=== PATIENT | male | born 1990 | race Caucasian/White ===

== ENCOUNTER 2017-07-21 16:33 | Emergency (ER) | payer OTHER ==
[2017-07-21 16:41] VITALS: BP 128/92; PULSE 100; TEMP 98.3; BMI 24.0
--- NOTE | 2017-07-21 16:41 | PDOC ---
Rapid Medical Evaluation Time Seen by Provider: 07/21/17 16:36 Medical Evaluation: 07/21/17 16:36 The patient presents with a chief complaint of: Itching all over body for 6-7 months. Taking anti-itch medication, still with itching. No fevers or recent illness. 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 I have performed a brief in-person evaluation of this patient; Pertinent physical exam findings: ambulatory, in no respiratory distress. No obvious rash I have ordered the following: nothing The patient will proceed to the ED for further evaluation.
--- NOTE | 2017-07-21 18:13 | PDOC ---
History of Present Illness - General Chief Complaint: Rash Stated Complaint: RASH Time Seen by Provider: 07/21/17 16:36 History Source: Patient Exam Limitations: No Limitations - History of Present Illness Initial Comments: 07/21/17 18:08 Patient came with friend for evaluation of severe itching. Patient is dates he has seen multiple doctors and this syndrome started approximately 6 months ago. States was seen by his private physician and evaluated "thoroughly, she did every test" which all returned negative for any pathology. He insisted on repeating test as he felt there was still an issue with his health which is private physician applied and again returned with negative results. At that time as patient states itching was escalating to multiple areas on his body "on the inside of my legs and my arms", was referred to business development sales executive who started patient on hydroxyzine and some type of ALLERGY injection. States after 1 month of receiving these injections had no relief of this itching and in fact was escalating. In by and another business development sales executive who suggested some steroids and several creams which he prescribed. Patient states after another length of time had no resolution to this significant itching and was referred to yet one more business development sales executive who treated him with permethrin for scabies. Patient states that was not certain that patient had scabies however had exhausted all ideas for treatment for this itching. Patient states Vistaril which she had been taking all along has had no impact, has tried tea tree oil's, multiple over-the- counter medications for itching, and creams. With further discussion and confirmation of friend whose in room, patient admits to smoking marijuana daily and has for many months. Also reports that he has been depressed to some family members, and the loss of his job some months ago. 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 Denies fever, ear or throat pain, denies cough shortness of breath chest pain or palpitations. Denies nausea vomiting or any problems with bowel or bladder. No one else at home has any rash, has had no recent travel or known exposures. Has no topical ALLERGIES any food ALLERGIES or any drug ALLERGIES. Denies any other illicit drug use besides marijuana, does not drink alcohol, does smoke cigarettes. Timing/Duration: unsure Severity: mild, moderate Associated Symptoms: denies: fever/chills, nausea/vomiting, rash Past History - Travel Traveled outside of the country in the last 30 days: No Close contact w/someone who was outside of country & ill: No - Past Medical History Allergies/Adverse Reactions: Allergies Allergy/AdvReac Type Severity Reaction Status Date / Time No Known Allergies Allergy Verified 07/21/17 16:36 Home Medications: Ambulatory Orders Hydroxyzine HCl 25 mg PO ASDIR 07/21/17 Montelukast Sodium [Singulair] 10 mg PO HS 07/21/17 COPD: No - Suicide/Smoking/Psychosocial Hx Smoking History: Current every day smoker Have you smoked in the past 12 months: Yes Number of Cigarettes Smoked Daily: 4 Information on smoking cessation initiated: Yes 'Breaking Loose' booklet given: 07/21/17 Hx Alcohol Use: No Drug/Substance Use Hx: No Substance Use Type: None Review of Systems - Review of Systems Able to Perform ROS?: Yes Is the patient limited [place] proficient: Yes Constitutional: Yes: Symptoms Reported, See HPI, Loss of Appetite, Malaise, Weakness HEENTM: Yes: See HPI. No: Symptoms Reported, Nose Congestion Respiratory: Yes: See HPI. No: Symptoms reported, Cough, Orthopnea, Wheezing ABD/GI: Yes: Symptoms Reported Musculoskeletal: Yes: See HPI. No: Symptoms Reported, Back Pain, Joint Pain Integumentary: Yes: Symptoms Reported, See HPI, Pruritus, Rash (states has rash but points to areas where has excoriation from obvious scratching) Psychiatric: Yes: Depression, Mood Swings All Other Systems: Reviewed and Negative *Physical Exam - Vital Signs Last Vital Signs Temp Pulse Resp BP Pulse Ox 98.3 F 100 H 18 128/92 100 07/21/17 16:38 07/21/17 16:38 07/21/17 16:38 07/21/17 16:38 07/21/17 16:38 - Physical Exam General Appearance: Yes: Nourished, Appropriately Dressed, Apparent Distress, Mild Distress, Moderate Distress. No: Intoxicated HEENT: positive: KARLOS, Normal ENT Inspection, TMs Normal, Pharynx Normal Neck: positive: Tender, Supple. negative: Lymphadenopathy (R), Lymphadenopathy (L) Respiratory/Chest: positive: Lungs Clear, Normal Breath Sounds Cardiovascular: positive: Regular Rate Gastrointestinal/Abdominal: positive: Soft. negative: Tender Musculoskeletal: positive: Normal Inspection Extremity: positive: Normal Capillary Refill, Normal Inspection Integumentary: positive: Dry, Warm, Pale, Other (no rashes, lesions, eruptions, infestations noted. 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 negative: Normal Mood/Affect (he shouldn't extremely talkative, interrupting discussions, fidgeting, repeating answers, apologizing) Medical Decision Making - Medical Decision Making 07/21/17 17:44 lengthy discussion between Derek his friend Juan M, and myself about daily marijuana use and potential psychiatric relationship. Patient admits has anxiety and has been depressed recently. Denies homicidal/ suicidal ideation. Has thought about seeking counseling for same. Understands need to rest, avoid any caffeinated beverages or foods, to avoid marijuana used for at least 3-4 weeks to allow body to equilibrate and clean. Encouraged to follow up with private physician for repeat evaluation and perhaps referral for counseling. Encouraged to continue using hydroxyzine for both itching and mild sedative purpose 07/21/17 19:47 *DC/Admit/Observation/Transfer Diagnosis at time of Disposition: Chronic pruritus - Discharge Dispostion Disposition: HOME Condition at time of disposition: Stable Admit: No - Referrals Referrals: ON STAFF,NOT [Primary Care Provider] - Luis Antony, DIRECTOR REACTOR [employer]S [Nurse Practitioner] - - Patient Instructions Printed Discharge Instructions: DI for Anxiety -- Adult Additional Instructions: Rest, avoid stressful environments Rehydrate with water, soups, teas Avoid Caffeinated beverages, any stimulants- encourage healthy diet Cooler showers, avoid abrasive soaps or drying soaps Moisturizing well, avoid drying agents to skin Seek Attention with psychiatry to explore possibility of depression and anxiety. The marijuana use for significant period of time to allow for cleaning of system Continue hydroxyzine 25 mg tablets every 8 hours primarily at night to assist with sleep May seek attention at psychiatric emergency department which include [facility], [facility], [facility] for worsened feelings or distress - Post Discharge Activity Forms/Work/School Notes: Back to Work
== END 2017-07-21 19:20 | disposition home or self-care (01) ==
LOC: JERFT 16:33
DX: L29.8 Other pruritus (principal)
CPT/HCPCS: 99281-25

== ENCOUNTER 2017-10-06 18:44 | Inpatient (IN) | payer OTHER ==
[2017-10-06] MEDS ORDERED: diphenhydrAMINE HCL 25 MG CAPSULE (FP) PO ONE ×2 (18:51→19:42)
--- NOTE | 2017-10-06 18:51 | PDOC ---
Rapid Medical Evaluation Time Seen by Provider: 10/06/17 18:45 Medical Evaluation: Allergies Allergy/AdvReac Type Severity Reaction Status Date / Time No Known Allergies Allergy Verified 07/21/17 16:36 10/06/17 18:46 I have performed a brief in-person evaluation of this patient. The patient presents with a chief complaint of: rash to upper extremities Pertinent physical exam findings: scattered papules to upper extremities I have ordered the following: benadryl The patient will proceed to the ED for further evaluation. Discharge Disposition - Diagnosis Chronic pruritus - Referrals - Patient Instructions - Post Discharge Activity
--- NOTE | 2017-10-06 19:29 | PDOC ---
History of Present Illness - General Chief Complaint: Rash Stated Complaint: ALLERGIES Time Seen by Provider: 10/06/17 18:45 History Source: Patient - History of Present Illness Timing/Duration: other Associated Symptoms: reports: malaise. denies: chest pain, cough, fever/chills , headaches, loss of appetite, nausea/vomiting, shortness of breath Past History - Past Medical History Allergies/Adverse Reactions: Allergies Allergy/AdvReac Type Severity Reaction Status Date / Time No Known Allergies Allergy Verified 10/06/17 18:47 Home Medications: Ambulatory Orders Hydroxyzine HCl 25 mg PO ASDIR 07/21/17 Montelukast Sodium [Singulair] 10 mg PO HS 07/21/17 Cetirizine HCl [All Day Allergy] 10 mg PO ASDIR 10/06/17 COPD: No - Immunization History Immunization Up to Date: No - Suicide/Smoking/Psychosocial Hx Smoking History: Current every day smoker Have you smoked in the past 12 months: Yes Number of Cigarettes Smoked Daily: 4 Information on smoking cessation initiated: No 'Breaking Loose' booklet given: 07/21/17 Hx Alcohol Use: No (SOCIAL) Drug/Substance Use Hx: No Substance Use Type: None Review of Systems - Review of Systems Constitutional: Yes: Unexplained wgt Loss. No: Chills, Fever HEENTM: No: Throat Pain Respiratory: No: Cough, Shortness of Breath Cardiac (ROS): No: Chest Pain ABD/GI: No: Diarrhea, Nausea, Vomiting : No: Dysuria, Hematuria Integumentary: Yes: Rash Neurological: No: Headache, Dizziness *Physical Exam - Vital Signs Last Vital Signs Temp Pulse Resp BP Pulse Ox 99.7 F H 99 H 18 141/70 98 10/06/17 18:48 10/06/17 18:48 10/06/17 18:48 10/06/17 18:48 10/06/17 18:48 - Physical Exam General Appearance: Yes: Appropriately Dressed. No: Apparent Distress HEENT: positive: Normal ENT Inspection, Normal Voice, Pharynx Normal. negative : Scleral Icterus (R), Scleral Icterus (L) Neck: positive: Supple, Lymphadenopathy (R), Lymphadenopathy (L), Other (matted lymphadenopathy to supraclavicular fossa b/l, R>L) Respiratory/Chest: positive: Lungs Clear, Normal Breath Sounds. negative: Respiratory Distress Cardiovascular: positive: Regular Rate, S1, S2 Gastrointestinal/Abdominal: positive: Soft. negative: Tender Integumentary: positive: Dry, Warm, Other (diffuse hemorrjagic tipped, erythematopus papular rash to trunk and extremties, no finger web, palm/sole involvement) Neurologic: positive: Fully Oriented, Alert, Normal Mood/Affect ED Treatment Course - LABORATORY CBC & Chemistry Diagram: 10/07/17 06:30 10/07/17 06:30 - RADIOLOGY Radiology Studies Ordered: Category Date Time Status CHEST PA & LAT [RAD] Stat Radiology 10/06/17 19:26 Ordered Medical Decision Making - Medical Decision Making 10/06/17 19:27 27-year-old male, denies any past medical history, presenting with persistent rash. States he has had generalized pruritic rash for approximately 10 months now. Symptoms started after he swallowed a bug while outdoors per pt. States he has not been feeling right since then. Has been seen by several dermatologists and treated multiple times for scabies with permethrin with no relief of symptoms. He has also been given various creams with no improvement. Patient had possible biopsy of skin lesion by coagulation operator several days ago and now pending results. States he has also had blood work done in the past w/ normal results. Patient also reports that 3-4 days ago he noticed some swelling in his neck area, which is not painful. Also c/o malaise and ~ 10-15 pounds weight loss over the past several months, but states he has since regained baseline weight. No abd pain, change in BM, dysuria, CP, SOB, cough, COREA, dizziness, f/c/n/v. No known tick bite or recent travel. Is currently employed. No sexual activity 5 months. No known history of STDs. States he started smoking cigarettes about 6 years ago and smoked approximately 2 a day. Denies any illicit drug use, and no excessive alcohol use per pt See exam Chronic rash Multiple eval by derm and s/p multiple tx, including for scabies, w/ no relief Has diffuse hemorrhagic tipped, erythematous papular rash throughout extremities and trunk, non-specific in appearance, no finger web, palm/sole involvement -will m/l need continued derm f/u Lymphadenopathy Found to have matted lymphadenoathy to supraclavicular fossa b/l on exam, R>L Given clinical picture, Ddif dx extensive and includes HIV vs malignancy vs lyme vs syphilis vs rheumatological source, etc -labs, including RPR and HIV -cxr -will discuss further imaging w/ ED attg 10/06/17 19:57 Signed out to DAX Connor and Dr Garcia in main ED pending w/u *DC/Admit/Observation/Transfer Diagnosis at time of Disposition: Chronic pruritus, Mediastinal lymphadenopathy - Discharge Dispostion Condition at time of disposition: Fair - Referrals - Patient Instructions - Post Discharge Activity
[2017-10-06 20:12] LABS: URINE APPEARANCE CLEAR; URINE BILIRUBIN NEGATIVE (<2.0 mg/dL); URINE COLOR YELLOW; URINE GLUCOSE (UA) NEGATIVE (NEGATIVE); URINE KETONE NEGATIVE (NEGATIVE); URINE LEUK ESTERASE NEGATIVE (NEGATIVE); URINE NITRITE NEGATIVE (NEGATIVE); URINE PROTEIN NEGATIVE (NEGATIVE); URINE UROBILINOGEN 4.0 E.U/dl mg/dL (0.2-1.0)
[2017-10-06 20:20] LABS: BASO % 0.4 % (0-2.0); EOS % 1.8 % (0-4.5); HEMATOCRIT 38.9 % (35.4-49); HEMOGLOBIN 12.7 GM/dL (11.7-16.9); MCH 26.6 pg (25.7-33.7); MCHC 32.6 g/dl (32.0-35.9); MEAN CELL VOLUME 81.6 fl (80-96); MEAN PLT VOLUME 9.4 fl (7.5-11.1); MONO % 8.3 % (3.8-10.2); NEUT % 85.5 % (42.8-82.8); PLATELET COUNT 310 K/MM3 (134-434); RBC 4.77 M/mm3 (4.00-5.60); WHITE BLOOD COUNT 14.5 K/mm3 (4.0-10.0)
[2017-10-06 20:36] LABS: COCAINE, UR NEGATIVE ng/ml (CUTOFF=300); METHADONE, UR NEGATIVE ng/ml (CUTOFF=300); OPIATES, URI NEGATIVE ng/ml (CUTOFF=300); PHENCYCLIDINE,URINE NEGATIVE ng/ml (CUTOFF=25); URINE AMPHETAMINES NEGATIVE ng/ml (CUTOFF=500); URINE BARBITURATES NEGATIVE ng/ml (CUTOFF=200); URINE BENZODIAZEPINES NEGATIVE ng/ml (CUTOFF=200)
[2017-10-06 20:48] LABS: ALBUMIN 3.5 g/dl (3.4-5.0); ANION GAP 8 (8-16); BLOOD UREA NITROGEN 12 mg/dL (7-18); CALCIUM 8.9 mg/dL (8.5-10.1); CHLORIDE 102 mmol/L (98-107); CO2 28 mmol/L (21-32); CREATININE 0.7 mg/dL (0.7-1.3); GLUCOSE,RANDOM 81 mg/dL (74-106); LIPASE 83 U/L (73-393); POTASSIUM 4.1 mmol/L (3.5-5.1); SGOT/AST 28 U/L (15-37); SGPT/ALT 26 U/L (12-78); SODIUM 138 mmol/L (136-145)
[2017-10-06 20:50] LABS: ALK PHOS 119 U/L (45-117); BILIRUBIN,TOTAL 0.4 mg/dL (0.2-1.0); TOT PROT 7.4 g/dl (6.4-8.2)
--- NOTE | 2017-10-06 21:04 | PDOC ---
*Physical Exam - Vital Signs Last Vital Signs Temp Pulse Resp BP Pulse Ox 99.7 F H 99 H 18 141/70 98 10/06/17 18:48 10/06/17 18:48 10/06/17 18:48 10/06/17 18:48 10/06/17 18:48 ED Treatment Course - LABORATORY CBC & Chemistry Diagram: 10/07/17 06:30 10/07/17 06:30 - ADDITIONAL ORDERS Additional order review: Laboratory Results 10/06/17 10/06/17 19:20 19:20 Urine Color Yellow Urine Appearance Clear Urine pH 5.0 Ur Specific [place] 1.020 Urine Protein Negative Urine Glucose (UA) Negative Urine Ketones Negative Urine Blood Negative Urine Nitrite Negative Urine Bilirubin Negative Urine Urobilinogen 4.0 e.u/dl Ur Leukocyte Esterase Negative Opiates Screen Negative Methadone Screen Negative Barbiturate Screen Negative Phencyclidine Screen Negative Ur Amphetamines Screen Negative MDMA (Ecstasy) Screen Negative Benzodiazepines Screen Negative Cocaine Screen Negative U Marijuana (THC) Screen Positive 10/06/17 19:20 RBC 4.77 MCV 81.6 MCHC 32.6 RDW 16.0 H MPV 9.4 Neutrophils % 85.5 H Lymphocytes % 4.0 L Monocytes % 8.3 Eosinophils % 1.8 Basophils % 0.4 - Medications Given in the ED: ED Medications Discontinued Medications Generic Name Dose Route Start Last Admin Trade Name Trevorq PRN Reason Stop Dose Admin Diphenhydramine HCl 50 mg 10/06/17 18:51 10/06/17 19:54 Benadryl - PO 10/06/17 18:52 50 mg ONCE ONE Administration Medical Decision Making - Medical Decision Making 10/06/17 21:03 I received a call from radiologist Re: This patient's chest x-ray which demonstrates lymphadenopathy. He recommends CT with contrast of the chest This was ordered CT demonstrates lymphadenopathy - DD: lymphoma vs. sarcoidosis Will admit to hospitalist service 10/07/17 20:51 *DC/Admit/Observation/Transfer Diagnosis at time of Disposition: Chronic pruritus, Mediastinal lymphadenopathy - Discharge Dispostion Disposition: HOME Condition at time of disposition: Improved - Referrals - Patient Instructions - Post Discharge Activity
--- NOTE | 2017-10-06 23:26 | PDOC ---
*Physical Exam - Vital Signs Last Vital Signs Temp Pulse Resp BP Pulse Ox 99.7 F H 99 H 18 141/70 98 10/06/17 18:48 10/06/17 18:48 10/06/17 18:48 10/06/17 18:48 10/06/17 18:48 ED Treatment Course - LABORATORY CBC & Chemistry Diagram: 10/06/17 19:20 10/06/17 19:20 - ADDITIONAL ORDERS Additional order review: Laboratory Results 10/06/17 10/06/17 10/06/17 19:20 19:20 19:20 Sodium 138 Potassium 4.1 Chloride 102 Carbon Dioxide 28 Anion Gap 8 BUN 12 Creatinine 0.7 Creat Clearance w eGFR > 60 Random Glucose 81 Calcium 8.9 Total Bilirubin 0.4 AST 28 ALT 26 Alkaline Phosphatase 119 H Total Protein 7.4 Albumin 3.5 Lipase 83 Urine Color Yellow Urine Appearance Clear Urine pH 5.0 Ur Specific [place] 1.020 Urine Protein Negative Urine Glucose (UA) Negative Urine Ketones Negative Urine Blood Negative Urine Nitrite Negative Urine Bilirubin Negative Urine Urobilinogen 4.0 e.u/dl Ur Leukocyte Esterase Negative Opiates Screen Negative Methadone Screen Negative Barbiturate Screen Negative Phencyclidine Screen Negative Ur Amphetamines Screen Negative MDMA (Ecstasy) Screen Negative Benzodiazepines Screen Negative Cocaine Screen Negative U Marijuana (THC) Screen Positive 10/06/17 19:20 RBC 4.77 MCV 81.6 MCHC 32.6 RDW 16.0 H MPV 9.4 Neutrophils % 85.5 H Lymphocytes % 4.0 L Monocytes % 8.3 Eosinophils % 1.8 Basophils % 0.4 - Medications Given in the ED: ED Medications Discontinued Medications Generic Name Dose Route Start Last Admin Trade Name Freq PRN Reason Stop Dose Admin Diphenhydramine HCl 50 mg 10/06/17 18:51 10/06/17 19:54 Benadryl - PO 10/06/17 18:52 50 mg ONCE ONE Administration Progress Note - Progress Note Progress Note: Sign out received from ANIKA Ho. Summary of ED course Pertinent studies/lab/EKG/consults- CXR- mediastinal lymphadenopathy Meds given- Benadryl Anticipated plan/disposition- dispo pending CT results Medical Decision Making - Medical Decision Making 10/06/17 23:30 Received signout from ANIKA Ho. Upon signout patient was pending CAT scan of the chest as chest x-ray revealed a mediastinal lymphadenopathy. Physical exam reveals matted lymph adenopathy in the clavicle regions with the right worse than the left. CT of the chest as read by Dr. Malone: Multiple homogenous noncalcified mediastinal lymph nodes are seen within the her tracheal, pretracheal, preaortic, aortopulmonary window and the left internal mammary regions with maximum short axis diameter of approximately 4 cm. Superior mediastinal lymphadenopathy is also seen. There is no discrete hilar or axillary lymphadenopathy. No definite pulmonary or pleural pathology is visualized Impression: Extensive mediastinal lymphadenopathy is identified-? Lymphoma versus atypical pattern of sarcoidosis No definite abnormality is seen involving the pulmonary parenchyma or pleura. Case discussed with Dr. Garcia who recommends admission to hospitalist for further workup. 10/06/17 23:[address] Villalba the hospitalist service will admit the patient for continued evaluation. *DC/Admit/Observation/Transfer Diagnosis at time of Disposition: Chronic pruritus, Mediastinal lymphadenopathy - Discharge Dispostion Condition at time of disposition: Fair Decision to Admit order: Yes - Referrals - Patient Instructions - Post Discharge Activity
--- NOTE | 2017-10-06 23:54 | HP ---
CHIEF COMPLAINT: "I have a rash and swollen nodes" PCP: Dr William Derm: female doc at [facility] HISTORY OF PRESENT ILLNESS: This is a previously healthy 27 yo M with no PMH, who presents with persistent generalized rash x 7 mo and new cervical adenopathy x 3 d. Patients rash is all over his body, erythematous, papular, pruritic (more so at night but not after shower) and has gotten progressively worse despite multiple topical and systemic treatments by derm, including for scabies. Patient had a skin biopsy at his derm clinic 3 days ago but doesn't know results. he reports an unintentional weight loss of 10 lb along with night sweats when the rash first occurred but has gained the weight back and no longer experiences night sweats. a few days ago he noticed swollen lymph nodes in neck. He denies trougle swallowing, cp, cough, sob, f/c, fatigue, abd pain, n/v. ER course was notable for: (1)labs (2)cxr, chest ct (3)benadryl Recent Travel: denies PAST MEDICAL HISTORY: denies PAST SURGICAL HISTORY: denies Social History: livs with father Smoking: past smoker Alcohol: denies Drugs: occasional cannabis Family History: mother of breast CA in early 50's Allergies No Known Allergies Allergy (Verified 10/06/17 18:47) HOME MEDICATIONS: Home Medications Medication Instructions Recorded Hydroxyzine HCl 25 mg PO ASDIR 07/21/17 Montelukast Sodium [Singulair] 10 mg PO HS 07/21/17 Cetirizine HCl [All Day Allergy] 10 mg PO ASDIR 10/06/17 REVIEW OF SYSTEMS CONSTITUTIONAL: Absent: fever, chills, diaphoresis, generalized weakness HEENT: Absent: rhinorrhea, nasal congestion, throat pain, difficulty swallowing CARDIOVASCULAR: Absent: chest pain, syncope, palpitations, irregular heart rate, lightheadedness , peripheral edema RESPIRATORY: Absent: cough, shortness of breath, hemoptysis GASTROINTESTINAL: Absent: abdominal pain, abdominal distension, nausea, vomiting GENITOURINARY: Absent: flank pain MUSCULOSKELETAL: Absent: back pain, neck pain SKIN: Absent: pallor HEMATOLOGIC/IMMUNOLOGIC: Absent: easy bleeding, easy bruising ENDOCRINE: Absent: heat intolerance, cold intolerance NEUROLOGIC: Absent: headache, focal weakness or paresthesias PSYCHIATRIC: Absent: anxiety, depression PHYSICAL EXAMINATION Vital Signs - 24 hr 10/06/17 18:48 Temperature 99.7 F H Pulse Rate 99 H Respiratory 18 Rate Blood Pressure 141/70 O2 Sat by Pulse 98 Oximetry (%) GENERAL: Awake, alert, and fully oriented, in no acute distress. HEAD: Normal with no signs of trauma. EYES: Pupils equal, round and reactive to light, extraocular movements intact, sclera anicteric, conjunctiva clear. No lid lag. EARS, NOSE, THROAT: oropharynx clear without exudates. Moist mucous membranes. NECK: supple, large, mildly tender anterior cervical adenopathy l>r and well as b/l supraclavicular adenopathy. no axillary adenopathy LUNGS: Breath sounds equal, clear to auscultation bilaterally. HEART: Regular rate and rhythm, normal S1 and S2 without murmur ABDOMEN: Soft, nontender, not distended, normoactive bowel sounds, no guarding, no rebound, no masses. No hepatomegaly or splenomegaly. MUSCULOSKELETAL: No CVA tenderness. UPPER EXTREMITIES: 2+ pulses, warm, well-perfused. No peripheral edema. LOWER EXTREMITIES: 2+ pulses, warm, well-perfused. No calf tenderness. No peripheral edema. NEUROLOGICAL: Cranial nerves II-XII grossly intact. Normal speech. Normal gait. PSYCHIATRIC: Cooperative. Good eye contact. Appropriate mood and affect. SKIN: diffuse hemorrhagic tipped, erythematous, papular rash throughout extremities and trunk, no finger web, palm/sole involvement Laboratory Results - last 24 hr 10/06/17 10/06/17 10/06/17 19:20 19:20 19:20 WBC 14.5 H RBC 4.77 Hgb 12.7 Hct 38.9 MCV 81.6 MCH 26.6 MCHC 32.6 RDW 16.0 H Plt Count 310 MPV 9.4 Absolute Neuts (auto) 12.4 Neutrophils % 85.5 H Lymphocytes % 4.0 L Monocytes % 8.3 Eosinophils % 1.8 Basophils % 0.4 Nucleated RBC % 0 Sodium 138 Potassium 4.1 Chloride 102 Carbon Dioxide 28 Anion Gap 8 BUN 12 Creatinine 0.7 Creat Clearance w eGFR > 60 Random Glucose 81 Calcium 8.9 Total Bilirubin 0.4 AST 28 ALT 26 Alkaline Phosphatase 119 H Total Protein 7.4 Albumin 3.5 Lipase 83 Urine Color Yellow Urine Appearance Clear Urine pH 5.0 Ur Specific [place] 1.020 Urine Protein Negative Urine Glucose (UA) Negative Urine Ketones Negative Urine Blood Negative Urine Nitrite Negative Urine Bilirubin Negative Urine Urobilinogen 4.0 e.u/dl Ur Leukocyte Esterase Negative Opiates Screen Methadone Screen Barbiturate Screen Phencyclidine Screen Ur Amphetamines Screen MDMA (Ecstasy) Screen Benzodiazepines Screen Cocaine Screen U Marijuana (THC) Screen HIV 1&2 Antibody Screen HIV P24 Antigen 10/06/17 10/06/17 19:20 19:20 WBC RBC Hgb Hct MCV MCH MCHC RDW Plt Count MPV Absolute Neuts (auto) Neutrophils % Lymphocytes % Monocytes % Eosinophils % Basophils % Nucleated RBC % Sodium Potassium Chloride Carbon Dioxide Anion Gap BUN Creatinine Creat Clearance w eGFR Random Glucose Calcium Total Bilirubin AST ALT Alkaline Phosphatase Total Protein Albumin Lipase Urine Color Urine Appearance Urine pH Ur Specific [place] Urine Protein Urine Glucose (UA) Urine Ketones Urine Blood Urine Nitrite Urine Bilirubin Urine Urobilinogen Ur Leukocyte Esterase Opiates Screen Negative Methadone Screen Negative Barbiturate Screen Negative Phencyclidine Screen Negative Ur Amphetamines Screen Negative MDMA (Ecstasy) Screen Negative Benzodiazepines Screen Negative Cocaine Screen Negative U Marijuana (THC) Screen Positive HIV 1&2 Antibody Screen Negative HIV P24 Antigen Negative ASSESSMENT/PLAN: This is a previously healthy 27 yo M with no PMH, who presents with persistent generalized rash x 7 mo and new cervical adenopathy x 3 d. Diffuse pruritic rash with cervical and mediastinal adenopathy -cxr, xt scan show severe mediastinal adenopathy -temp 99F on admission -mycosis fungodes vs sarcoid vs infectious cause -f/u lyme, hiv, syphilis, rheum labs -Heme/onc, Pulm, ID consults -benadryl, cortisone cream PRN -try to find out who the derm doctor is to f/u on skin biopsy FEN no ivf lytes stable regular diet early ambulation, teds adm m/s Problem List - Problem (1) Chronic pruritus Code(s): L29.9 - PRURITUS, UNSPECIFIED (2) Mediastinal lymphadenopathy Code(s): R59.0 - LOCALIZED ENLARGED LYMPH NODES Visit type - Emergency Visit Emergency Visit: Yes ED Registration Date: 10/07/17 Care time: The patient presented to the Emergency Department on the above date and was hospitalized for further evaluation of their emergent condition. - New Patient This patient is new to me today: Yes Date on this admission: 10/07/17 - Critical Care Critical Care patient: No
[2017-10-07] MEDS ORDERED: diphenhydrAMINE HCL 25 MG CAPSULE (FP) PO PRN (00:59)
--- NOTE | 2017-10-07 03:10 | PN ---
Teaching Attending Note Name of Resident: Caty Villalba ATTENDING PHYSICIAN STATEMENT I saw and evaluated the patient. I reviewed the resident's note and discussed the case with the resident. I agree with the resident's findings and plan as documented. SUBJECTIVE: 27M p/w rash of upper extreemities, recently noticed swollen bumps on his neck, had night sweats in past and weight loss, but reports gaining weight now. OBJECTIVE: Neck: bilateral cervical lymphadenopathy CXR mediastinal Lymphadenopathy CT Chest: extensive mediastinal lymphadenopathy lymphona vs atypical sarcoid WBC 14.5 Utox + MJ ASSESSMENT AND PLAN: 27M with symptoms sugggestive most likely of lymphoma f/u Oncology and surgical consults to evalaute for biopsy and continued workup topical steroids for itching
[2017-10-07 04:23] VITALS: BMI 22.9
[2017-10-07] MEDS: NEOMYCIN/POLYMYXIN/HC TOPICAL CREAM 7.5 GM TUBE TP SCH ×2 (05:16→14:59)
[2017-10-07 06:41] LABS: BASO % 0.2 % (0-2.0); HEMATOCRIT 37.6 % (35.4-49); HEMOGLOBIN 12.5 GM/dL (11.7-16.9); LYMPH % 4.4 % (8-40); MCH 26.9 pg (25.7-33.7); MCHC 33.2 g/dl (32.0-35.9); MEAN CELL VOLUME 81.2 fl (80-96); MEAN PLT VOLUME 8.7 fl (7.5-11.1); MONO % 10.9 % (3.8-10.2); NEUT % 82.5 % (42.8-82.8); PLATELET COUNT 252 K/MM3 (134-434); RBC 4.63 M/mm3 (4.00-5.60); RDW 16.2 % (11.9-15.9); WHITE BLOOD COUNT 14.1 K/mm3 (4.0-10.0)
[2017-10-07 07:09] LABS: ALBUMIN 3.4 g/dl (3.4-5.0); ALK PHOS 108 U/L (45-117); ANION GAP 5 (8-16); BILIRUBIN,TOTAL 0.5 mg/dL (0.2-1.0); BLOOD UREA NITROGEN 9 mg/dL (7-18); CALCIUM 8.8 mg/dL (8.5-10.1); CHLORIDE 103 mmol/L (98-107); CO2 29 mmol/L (21-32); CREATININE 0.7 mg/dL (0.7-1.3); GLUCOSE,RANDOM 82 mg/dL (74-106); PHOSPHOROUS 3.4 mg/dL (2.5-4.9); POTASSIUM 4.2 mmol/L (3.5-5.1); SGOT/AST 25 U/L (15-37); SGPT/ALT 22 U/L (12-78); SODIUM 137 mmol/L (136-145)
--- NOTE | 2017-10-07 09:49 | PN ---
Progress Note (short form) - Note Progress Note: states he feels fine. came to the hospital because rash was pruritic which now it resolved. noted to have some "throat bumps" 3-4 days ago. has been consistently following up with multiple disabilities caregiver and his PMD to determine what is going on. pt very anxious about going home due to fear of losing his job. denies CP, SOB, fever, chills, N/V/C/D, dysphagia, odynophagia mother of breast ca. no other malignancy in the family states he lost about 10lbs but has regained the weight. states he never had night sweats. Current Medications Generic Name Dose Route Start Last Admin Trade Name Freq PRN Reason Stop Dose Admin Diphenhydramine HCl 50 mg 10/07/17 00:59 10/07/17 02:31 Benadryl - PO 50 mg HS PRN Administration FOR ITCHING Montelukast Sodium 10 mg 10/07/17 22:00 Singulair - PO HS DONNA Neomycin/Polymyxin/Hydrocortisone 1 applic 10/07/17 06:00 10/07/17 05:16 Cortisporin Cream - TP 1 applic TID DONNA Administration Last Vital Signs Temp Pulse Resp BP Pulse Ox 99.0 F 74 20 140/57 98 10/07/17 06:00 10/07/17 06:00 10/07/17 06:00 10/07/17 06:00 10/07/17 04:27 General anxious HEENT B/L supraclvicular LN, not painful. not mobile. no LN appreciated along the face or axilla CV S1 S2 RRR no murmur/rub/gallop Lungs CTA B/L no wheezing/rales/rhonchi Abdomen soft NT/ND Extremities no pedal edema groin no LN skin diffuse macular rash on the chest. some sparse rash along the scapula, none appreciated on the legs CBCD WBC 14.1 K/mm3 (4.0-10.0) H 10/07/17 06:30 RBC 4.63 M/mm3 (4.00-5.60) 10/07/17 06:30 Hgb 12.5 GM/dL (11.7-16.9) 10/07/17 06:30 Hct 37.6 % (35.4-49) 10/07/17 06:30 MCV 81.2 fl (80-96) 10/07/17 06:30 MCHC 33.2 g/dl (32.0-35.9) 10/07/17 06:30 RDW 16.2 % (11.9-15.9) H 10/07/17 06:30 Plt Count 252 K/MM3 (134-434) 10/07/17 06:30 MPV 8.7 fl (7.5-11.1) 10/07/17 06:30 CMP Sodium 137 mmol/L (136-145) 10/07/17 06:30 Potassium 4.2 mmol/L (3.5-5.1) 10/07/17 06:30 Chloride 103 mmol/L (98-107) 10/07/17 06:30 Carbon Dioxide 29 mmol/L (21-32) 10/07/17 06:30 Anion Gap 5 (8-16) L 10/07/17 06:30 BUN 9 mg/dL (7-18) D 10/07/17 06:30 Creatinine 0.7 mg/dL (0.7-1.3) 10/07/17 06:30 Creat Clearance w eGFR > 60 (>60) 10/07/17 06:30 Calcium 8.8 mg/dL (8.5-10.1) 10/07/17 06:30 Total Bilirubin 0.5 mg/dL (0.2-1.0) D 10/07/17 06:30 AST 25 U/L (15-37) 10/07/17 06:30 ALT 22 U/L (12-78) 10/07/17 06:30 Alkaline Phosphatase 108 U/L (45-117) 10/07/17 06:30 Total Protein 7.0 g/dl (6.4-8.2) 10/07/17 06:30 Albumin 3.4 g/dl (3.4-5.0) 10/07/17 06:30 A/P 27yo M with no PMH presenting with rash, chills and unexplained weight loss and found to have multiple diffuse lymphadenopathy 1. Extensive lymphadenopathy- given pt age and clinical picture concern for lymphoma. will obtain CT abdomen/pelvis with contrast. will ultimately require Bx of LN however this can be done as outpatient. awaiting ID and heme/onc eval. HIV negative 2. Macular rash- multiple treatment regimens with mild improvement. underwent Bx earlier this week and is unaware of the results. cont with current disabilities caregiver recommendations and follow up as outpatient 3. allergies- on singulair 4. DVT ppx- EAM 5. pt very anxious about being in the hospital. states he missed too many days at work and is in fear of loosing his job. willing to stay for today to get some testing done and speak with charge account authorizer but can not miss work tomorrow. explained risks and benefits of leaving. possible d/c pending results of CT with close outpatient follow up.
[2017-10-07] MEDS ORDERED: PT OWN MED DRAWER 7, Y5N ONE (14:57)
[2017-10-07 15:01] VITALS: BP 137/75; PULSE 70; TEMP 98.9
--- NOTE | 2017-10-07 15:29 | CONSULT ---
Consult Consult Specialty:: Hematology - History of Present Illness History of Present Illness: Admitted for rash and LAD Underwent biopsy this past monday by a supervisor beater room in the [place] We were called to evaluate for LAD/Rash - Alcohol/Substance Use Hx Alcohol Use: No (SOCIAL) - Smoking History Smoking history: Current every day smoker Have you smoked in the past 12 months: Yes Aproximately how many cigarettes per day: 4 Home Medications - Allergies Allergies/Adverse Reactions: Allergies Allergy/AdvReac Type Severity Reaction Status Date / Time No Known Allergies Allergy Verified 10/06/17 18:47 - Home Medications Home Medications: Ambulatory Orders Hydroxyzine HCl 25 mg PO ASDIR 07/21/17 Montelukast Sodium [Singulair] 10 mg PO HS 07/21/17 Cetirizine HCl [All Day Allergy] 10 mg PO ASDIR 10/06/17 Review of Systems Findings/Remarks: +rash +LAD no bleeding no night sweats no weight loss no adb pain. Physical Exam Vital Signs: Vital Signs Temperature 98.9 F 10/07/17 14:59 Pulse Rate 70 10/07/17 14:59 Respiratory Rate 20 10/07/17 14:59 Blood Pressure 137/75 10/07/17 14:59 O2 Sat by Pulse Oximetry (%) 100 10/07/17 09:00 Constitutional: Yes: No Distress, Calm Eyes: Yes: Conjunctiva Clear, EOM Intact Neck: Yes: Lymphadenopathy, Other (left/ bilateral LAD present) Respiratory: Yes: Regular, CTA Bilaterally Gastrointestinal: Yes: Normal Bowel Sounds, Soft. No: Splenomegaly Extremities: Yes: WNL Edema: No Labs: CBC, BMP 10/07/17 06:30 10/07/17 06:30 Assessment/Plan Suspicious for Lymphaomatous vs infectious process detailed discussion with the pt, pt wanted to leave explained about the CT scan/physical exam with LAD in the neck and need for further evaluation. He is insisting on leaving but agreed to follow-up as an OP. he will come next week as per him d/w friend at bedside upon his permission and hospitalist
--- NOTE | 2017-10-07 15:31 | DS ---
Physical Exam: SUBJECTIVE: Patient seen and examined. tates he feels fine. came to the hospital because rash was pruritic which now it resolved. noted to have some "throat bumps" 3-4 days ago. has been consistently following up with multiple model engine mechanic and his PMD to determine what is going on. pt very anxious about going home due to fear of losing his job. denies CP, SOB, fever, chills, N/V/C/D , dysphagia, odynophagia mother of breast ca. no other malignancy in the family states he lost about 10lbs but has regained the weight. states he never had night sweats. OBJECTIVE: Vital Signs Period Temp Pulse Resp BP Sys/Hernandez Pulse Ox Last 24 Hr 98.4 F-99.7 F 70-99 17-20 122-141/57-75 98-100 PHYSICAL EXAM GENERAL: The patient is awake, alert, and fully oriented, in no acute distress. HEAD: Normal with no signs of trauma. EYES: PERRL, extraocular movements intact, sclera anicteric, conjunctiva clear. ENT: Ears normal, nares patent, oropharynx clear without exudates, moist mucous membranes. NECK: Trachea midline, full range of motion, supple. B/L supraclavicular hard, mobile LN not tender LUNGS: Breath sounds equal, clear to auscultation bilaterally, no wheezes, no crackles, no accessory muscle use. HEART: Regular rate and rhythm, S1, S2 without murmur, rub or gallop. ABDOMEN: Soft, nontender, nondistended, normoactive bowel sounds, no guarding, no rebound, no hepatosplenomegaly, no masses. EXTREMITIES: 2+ pulses, warm, well-perfused, no edema. NEUROLOGICAL: Cranial nerves II through XII grossly intact. Normal speech, gait not observed. PSYCH: Normal mood, normal affect. SKIN: Warm, dry, multiple macular like lesions along the chest and scapula. some excoriations LABS Laboratory Results - last 24 hr 10/06/17 10/06/17 10/06/17 19:20 19:20 19:20 WBC 14.5 H RBC 4.77 Hgb 12.7 Hct 38.9 MCV 81.6 MCH 26.6 MCHC 32.6 RDW 16.0 H Plt Count 310 MPV 9.4 Absolute Neuts (auto) 12.4 Neutrophils % 85.5 H Lymphocytes % 4.0 L Monocytes % 8.3 Eosinophils % 1.8 Basophils % 0.4 Nucleated RBC % 0 Sodium 138 Potassium 4.1 Chloride 102 Carbon Dioxide 28 Anion Gap 8 BUN 12 Creatinine 0.7 Creat Clearance w eGFR > 60 Random Glucose 81 Calcium 8.9 Phosphorus Magnesium Total Bilirubin 0.4 AST 28 ALT 26 Alkaline Phosphatase 119 H Total Protein 7.4 Albumin 3.5 Lipase 83 Urine Color Yellow Urine Appearance Clear Urine pH 5.0 Ur Specific [place] 1.020 Urine Protein Negative Urine Glucose (UA) Negative Urine Ketones Negative Urine Blood Negative Urine Nitrite Negative Urine Bilirubin Negative Urine Urobilinogen 4.0 e.u/dl Ur Leukocyte Esterase Negative Opiates Screen Methadone Screen Barbiturate Screen Phencyclidine Screen Ur Amphetamines Screen MDMA (Ecstasy) Screen Benzodiazepines Screen Cocaine Screen U Marijuana (THC) Screen HIV 1&2 Antibody Screen HIV P24 Antigen 10/06/17 10/06/17 10/07/17 19:20 19:20 06:30 WBC 14.1 H RBC 4.63 Hgb 12.5 Hct 37.6 MCV 81.2 MCH 26.9 MCHC 33.2 RDW 16.2 H Plt Count 252 MPV 8.7 Absolute Neuts (auto) 11.7 Neutrophils % 82.5 Lymphocytes % 4.4 L Monocytes % 10.9 H Eosinophils % 2.0 Basophils % 0.2 Nucleated RBC % 0 Sodium Potassium Chloride Carbon Dioxide Anion Gap BUN Creatinine Creat Clearance w eGFR Random Glucose Calcium Phosphorus Magnesium Total Bilirubin AST ALT Alkaline Phosphatase Total Protein Albumin Lipase Urine Color Urine Appearance Urine pH Ur Specific [place] Urine Protein Urine Glucose (UA) Urine Ketones Urine Blood Urine Nitrite Urine Bilirubin Urine Urobilinogen Ur Leukocyte Esterase Opiates Screen Negative Methadone Screen Negative Barbiturate Screen Negative Phencyclidine Screen Negative Ur Amphetamines Screen Negative MDMA (Ecstasy) Screen Negative Benzodiazepines Screen Negative Cocaine Screen Negative U Marijuana (THC) Screen Positive HIV 1&2 Antibody Screen Negative HIV P24 Antigen Negative 10/07/17 06:30 WBC RBC Hgb Hct MCV MCH MCHC RDW Plt Count MPV Absolute Neuts (auto) Neutrophils % Lymphocytes % Monocytes % Eosinophils % Basophils % Nucleated RBC % Sodium 137 Potassium 4.2 Chloride 103 Carbon Dioxide 29 Anion Gap 5 L BUN 9 D Creatinine 0.7 Creat Clearance w eGFR > 60 Random Glucose 82 Calcium 8.8 Phosphorus 3.4 Magnesium 2.0 Total Bilirubin 0.5 D AST 25 ALT 22 Alkaline Phosphatase 108 Total Protein 7.0 Albumin 3.4 Lipase Urine Color Urine Appearance Urine pH Ur Specific [place] Urine Protein Urine Glucose (UA) Urine Ketones Urine Blood Urine Nitrite Urine Bilirubin Urine Urobilinogen Ur Leukocyte Esterase Opiates Screen Methadone Screen Barbiturate Screen Phencyclidine Screen Ur Amphetamines Screen MDMA (Ecstasy) Screen Benzodiazepines Screen Cocaine Screen U Marijuana (THC) Screen HIV 1&2 Antibody Screen HIV P24 Antigen HOSPITAL COURSE: Date of Admission:10/06/17 Date of Discharge: 10/07/17 Admitting diagnosis: Extensive mediastinal Lymphadenopathy pre hospital course This is a previously healthy 27 yo M with no PMH, who presents with persistent generalized rash x 7 mo and new cervical adenopathy x 3 d. Patients rash is all over his body, erythematous, papular, pruritic (more so at night but not after shower) and has gotten progressively worse despite multiple topical and systemic treatments by derm, including for scabies. Patient had a skin biopsy at his derm clinic 3 days ago but doesn't know results. he reports an unintentional weight loss of 10 lb along with night sweats when the rash first occurred but has gained the weight back and no longer experiences night sweats. a few days ago he noticed swollen lymph nodes in neck. He denies trougle swallowing, cp, cough, sob, f/c, fatigue, abd pain, n/v. c Subsequent hospital course admitted to medicine. received CT with contrast of chest/abdomen/pelvis. evaluated by hematology. high concern for lymphoma. pt was d/c home with stressed importance of follow up with hematology on Monday. will need further testing including PET. Minutes to complete discharge: 40 Discharge Summary Reason For Visit: MEDIASTINAL LYMPHADENOPATHY PRURITUS Current Active Problems Chronic pruritus (Acute) Mediastinal lymphadenopathy (Acute) Condition: Improved - Instructions Diet, Activity, Other Instructions: You were admitted to the hospital because on cat scan you were found to have mutiple enlarged lymph nodes in your neck and chest. It is very important that you follow up with the helicopter dispatcher on Monday as you will require further testing. Her contact information has been provided Follow up with your primary care doctor this week Continue your medications as prescribed and follow up with your model engine mechanic for your biopsy results IF your symptoms worsen or you develop fever (temp > 101) return to the hospital Referrals: Vandana Gomez MD [Staff Physician] - Disposition: HOME - Home Medications Comprehensive Discharge Medication List: Ambulatory Orders Hydroxyzine HCl 25 mg PO ASDIR 07/21/17 Montelukast Sodium [Singulair] 10 mg PO HS 07/21/17 Cetirizine HCl [All Day Allergy] 10 mg PO ASDIR 10/06/17 This patient is new to me today: Yes Date on this admission: 10/07/17 Emergency Visit: Yes ED Registration Date: 10/06/17 Care time: The patient presented to the Emergency Department on the above date and was hospitalized for further evaluation of their emergent condition. Critical Care patient: No - Discharge Referral Referred to [facility] Med [facility] No
[2017-10-07] MEDS ORDERED: MONTELUKAST NA 10 MG TABLET PO SCH (22:00)
[2017-10-09 14:16] LABS: HEP.C VIRUS AB 0.1 s/co ratio (0.0-0.9)
== END 2017-10-07 15:58 | disposition home or self-care (01) | DRG 663 ==
LOC: JERFT 18:44 → JER 18:44 → JERBED 23:58 → UNDOADMIN 10-07 → J6S 10-07 02:13
PROVIDERS: ADMIT Internal Medicine; ATTEND Internal Medicine
DX: R59.0 Localized enlarged lymph nodes (principal); L29.9 Pruritus, unspecified; F17.210 Nicotine dependence, cigarettes, uncomplicated
CPT/HCPCS: 36415; 71046-TC-FY; 71260-TC; 74176-TC; 80053; 80074; 80307; 81003; 83690; 83735; 84100; 85025; 86593; 86618; 87389; 99284-25